=== PATIENT | male | born 1975 | race Caucasian/White ===

== ENCOUNTER 2017-07-13 21:48 | Emergency (ER) | payer MEDICAID, SELFPAY ==
[2017-07-13 21:49] VITALS: BP 123/73; PULSE 83; RESP 16; TEMP 36.8; O2SAT 92; BMI 20.7
--- NOTE | 2017-07-13 22:12 | ED.VISSUMM ---
- ER Visit Summary Date of Service: 07/13/17 Chief Complaint: [] Pain in the left calf History of Present Illness: The patient is a 41 M developed pain in his left calf 7 days ago. He noticed some redness along a superficial vein on the proximal medial calf. It went away. He felt a small nodule there. That went away. He has had a remote DVT 2 years ago. He wanted to make sure that we did not think he had a DVT. No significant pain currently. He is also complaining of some numbness in his right lateral thigh for greater than 10 days. He has a history of lumbar radiculopathies. No previous surgeries. He has had epidural injections. He is unsure if that is from his back. No home treatment. Physical Examination: Vital signs reviewed General: Well-nourished well-developed Head: Normocephalic atraumatic Eyes: Pupils equal round and reactive to light extraocular movements intact ENT: TMs clear no hemotympanum no trauma Neck: Nontender full range of motion Cardiovascular: Regular rate rhythm no murmurs normal S1-S2 Respiratory: No distress clear to auscultation bilaterally chest nontender Abdomen: Soft nontender nondistended normal bowel sounds no masses Back: Nontender no CVA tenderness Extremities: Nontender active range of motion ?4 extremities no trauma. Left lateral calf is normal. There is no swelling. There is no nodule of the vein. There is no redness warmth or discoloration. Normal range of motion. Right lateral thigh has mild decreased sensation to light touch. No swelling. No deformity. Skin: Normal color no trauma Neuro alert oriented cranial nerves II through XII intact normal strength sensation reflexes Test Results: [] Emergency Department Course and Treatment: [] At this time I feel the patient does not have a DVT in his left calf. 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 He really came in for reassurance. I do not feel he needs this ultrasound at this time. There is no swelling or appreciable abnormality. His right lateral thigh is likely from a radiculopathy from his lumbar spine. He will use anti-inflammatories and follow-up as an outpatient. Treatment Plan: [] Disposition: [] Impression: [] Left lateral calf pain resolved suspected thrombophlebitis resolved Right lateral thigh procedure was suspected lumbar radiculopathy This note was generated with [employer] dictation software. It may contain incorrect words, spelling, and punctuation that were not noted in review of the chart prior to signing ED Disposition - Plan for ED Patient: Chief Complaint: Lower Extremity Injury Referrals: Fotrunato Perdomo MD [Primary Care Provider] -
--- NOTE | 2017-07-13 22:16 | ED.DCSUM_ITS ---
- ER Visit Summary Date of Service: 07/13/17 Chief Complaint: [] Pain in the left calf History of Present Illness: The patient is a 41 M developed pain in his left calf 7 days ago. He noticed some redness along a superficial vein on the proximal medial calf. It went away. He felt a small nodule there. That went away. He has had a remote DVT 2 years ago. He wanted to make sure that we did not think he had a DVT. No significant pain currently. He is also complaining of some numbness in his right lateral thigh for greater than 10 days. He has a history of lumbar radiculopathies. No previous surgeries. He has had epidural injections. He is unsure if that is from his back. No home treatment. Physical Examination: Vital signs reviewed General: Well-nourished well-developed Head: Normocephalic atraumatic Eyes: Pupils equal round and reactive to light extraocular movements intact ENT: TMs clear no hemotympanum no trauma Neck: Nontender full range of motion Cardiovascular: Regular rate rhythm no murmurs normal S1-S2 Respiratory: No distress clear to auscultation bilaterally chest nontender Abdomen: Soft nontender nondistended normal bowel sounds no masses Back: Nontender no CVA tenderness Extremities: Nontender active range of motion ?4 extremities no trauma. Left lateral calf is normal. There is no swelling. There is no nodule of the vein. There is no redness warmth or discoloration. Normal range of motion. Right lateral thigh has mild decreased sensation to light touch. No swelling. No deformity. Skin: Normal color no trauma Neuro alert oriented cranial nerves II through XII intact normal strength sensation reflexes Test Results: [] Emergency Department Course and Treatment: [] At this time I feel the patient does not have a DVT in his left calf. 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 He really came in for reassurance. I do not feel he needs this ultrasound at this time. There is no swelling or appreciable abnormality. His right lateral thigh is likely from a radiculopathy from his lumbar spine. He will use anti- inflammatories and follow-up as an outpatient. Treatment Plan: [] Disposition: [] Impression: [] Left lateral calf pain resolved suspected thrombophlebitis resolved Right lateral thigh procedure was suspected lumbar radiculopathy This note was generated with [employer] dictation software. It may contain incorrect words, spelling, and punctuation that were not noted in review of the chart prior to signing ED Disposition - Plan for ED Patient: Chief Complaint: Lower Extremity Injury Referrals: Fortunato Perdomo MD [Primary Care Provider] -
--- NOTE | 2017-07-13 22:16 | ED.DEP ---
ED Disposition - Plan for ED Patient: Disposition: Home or Assisted Living Chief Complaint: Lower Extremity Injury Instructions: ED Paraesthesias Referrals: Fortunato Perdomo MD [Primary Care Provider] -
[2017-07-13 22:28] VITALS: RESP 18
--- NOTE | 2017-07-13 22:30 | NURSING ---
PATIENT DID NOT RECEIVE HIS MOTRIN. THIS NURSE WAS NOT ABLE TO GET THE COMPUTER TO WORK IN THE ROOM AND I DID NOT SEE THE MEDICATION WAS ORDERED. PT LEFT THE ROOM SO QUICKLY I WAS UNABLE TO CATCH HIM. DR. VALENZUELA WAS MADE AWARE AND WAS OK THAT HE DID NOT GET THE MOTRIN.
== END 2017-07-13 22:32 | disposition home or self-care (01) ==
PROVIDERS: Emergency Provider Emergency Medicine; Family Provider Family Medicine; PCP Family Medicine
DX: M79.662 Pain in left lower leg (principal); R20.0 Anesthesia of skin; Z86.718 Personal history of other venous thrombosis and embolism
CPT/HCPCS: 99282

== ENCOUNTER 2017-07-24 11:29 | Emergency (ER) | payer MEDICAID, SELFPAY ==
[2017-07-24 11:29] VITALS: BP 113/85; PULSE 115; RESP 22; TEMP 36.8; O2SAT 99; BMI 21.2
--- NOTE | 2017-07-24 11:55 | ED.DCSUM_ITS ---
- ER Visit Summary Date of Service: 07/24/17 Chief Complaint: Leg redness History of Present Illness: The patient is a 41 M since to the emergency department with right leg redness. The patient does have a history of heroin use. He states he injected in his leg about a week ago. Over the past 2 days, has noted some redness of the anterior leg. He denies any fevers or chills. He denies any history of immunosuppression. The patient does have history of prior pulmonary embolus, but is not currently on anticoagulants. He states the redness has gradually worsened over the past day. He denies any significant pain at the site. Physical Examination: Vital signs reviewed General: Well-nourished, well-developed Head: Normocephalic, atraumatic Eyes: Pupils equal and reactive, extraocular muscles intact Neck, supple, no lymphadenopathy Heart: Regular rate and rhythm Respiratory: No distress, clear bilaterally Abdomen: Soft, nontender, nondistended, no peritoneal signs Back: Nontender Extremities: No erythema of the anterior right quinonez. Normal pulses. No crepitus. No tenderness to palpation. Skin: Normal color no rash Neuro: Alert and oriented, no focal or lateralizing deficits Test Results: [] Emergency Department Course and Treatment: The patient does have an anterior cellulitis. It is mild. He has no systemic symptoms. I will treat him with oral antibiotics. There is no tenderness or crepitus. He was counseled on concerning symptoms and reasons to return. The patient will be discharged home. Treatment Plan: [] Disposition: Discharge Impression: 1. Right lower extremity cellulitis This note was generated with [employer] dictation software. It may contain incorrect words, spelling, and punctuation that were not noted in review of the chart prior to signing ED Disposition - Plan for ED Patient: Chief Complaint: Cellulitis Prescriptions: Cephalexin [Keflex] 500 mg PO Q6 #40 capsule Smz/Tmp Ds [Bactrim Ds] 2 tablet PO BID #28 tablet Referrals: Fortunato Perdomo MD [Primary Care Provider] -
[2017-07-24] MEDS: Smz/Tmp Ds Tablet 1 TABLET PO (12:06)
[2017-07-24] MEDS: Cephalexin 250 MG Capsule 500 MG PO (12:06)
== END 2017-07-24 12:17 | disposition home or self-care (01) ==
LOC: ED 12:14
PROVIDERS: Emergency Provider Emergency Medicine; Family Provider Family Medicine; PCP Family Medicine
DX: L03.115 Cellulitis of right lower limb (principal); Z72.0 Tobacco use
CPT/HCPCS: 99283

== ENCOUNTER 2018-05-05 17:02 | Emergency (ER) | payer MEDICAID, SELFPAY ==
[2018-05-05 17:02] VITALS: BMI 20.7
[2018-05-05 17:03] VITALS: BP 121/84; PULSE 98; RESP 16; TEMP 37.1; O2SAT 98; BMI 20.1
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
[2018-05-05] MEDS: Naproxen 500 MG Tablet PO (17:16)
[2018-05-05] MEDS: HYDROcodone Bitartrate/Apap 5/325 Tablet PO (17:16)
--- NOTE | 2018-05-05 18:03 | ED.DEP ---
ED Disposition - Plan for ED Patient: Disposition: Home or Assisted Living Chief Complaint: Chest Other Instructions: ED Fx Rib Prescriptions: Oxycodone [Oxyir] 5 mg PO Q6H PRN PRN 4 Days #20 tablet PRN Reason: Pain Naproxen [Naprosyn] 500 mg PO BID PRN #20 tablet Referrals: Fortunato Perdomo MD [Primary Care Provider] - 1-2 Weeks
[2018-05-05 18:16] VITALS: PULSE 72; RESP 14; O2SAT 98
== END 2018-05-05 18:17 | disposition home or self-care (01) ==
PROVIDERS: Emergency Provider Emergency Medicine; Family Provider Family Medicine; PCP Family Medicine
DX: S22.32XA Fracture of one rib, left side, initial encounter for closed fracture (principal); W50.0XXA Accidental hit or strike by another person, initial encounter; Y93.89 Activity, other specified; Z86.711 Personal history of pulmonary embolism; Z72.0 Tobacco use
CPT/HCPCS: 71101; 99283

== ENCOUNTER 2018-07-26 22:49 | Observation (INO) | payer MEDICAID, SELFPAY ==
[2018-07-26 22:50] VITALS: BP 89/63; PULSE 69; RESP 14; TEMP 36.6; O2SAT 96; BMI 21.1
--- NOTE | 2018-07-26 23:15 | EKG12_ITS ---
Test Reason : BACK PAIN Blood Pressure : / mmHG Vent. Rate : 074 BPM Atrial Rate : 074 BPM P-R Int : 124 ms QRS Dur : 100 ms QT Int : 334 ms P-R-T Axes : 076 092 076 degrees QTc Int : 370 ms Normal sinus rhythm with sinus arrhythmia Rightward axis Borderline ECG Confirmed by RUTH ANN VENEGAS, PADMA ([id number]), film editor DORY BRAVO ([id number]) on 08/01/2018 11:26:41 AM Referred By: NAMRATA Confirmed By:PADMA VALLECILLO MD
[2018-07-26] MEDS: Ketorolac 30 MG/ML Syringe IV (23:30)
[2018-07-26 23:43] LABS: Absolute Lymphocyte Count 2.19 X10^3/ul (0.83-4.51); Basophil# 0.07 X10^3/uL; Basophil% 0.7 % (0-1); Eosinophil# 0.11 X10^3/uL; Eosinophils% 1.2 % (0-5); Hematocrit 43.4 % (40-54); Hemoglobin 14.7 g/dl (13.0-16.5); Lymphocyte # 2.19 X10^3/ul (4.0); Lymphocyte % 23.1 % (19-41); Mean Corp Hgb Conc 33.9 g/gl (32-36); Mean Corpuscular Volume 91.6 fL (80-94); Mean Platelet Vol. 9.5 fl (6.2-12.0); Monocyte# 1.09 X10^3/uL; Monocyte% 11.5 % (0-10); Neutrophil # 5.99 X10^3/uL (2.7-7.7); Neutrophil % 63.1 % (47-70); Platelet Count 307 K/mm3 (150-450); RBC Distribution Width CV 14.7 % (11.6-14.6); RBC Distribution Width SD 48.4 fl (35.1-43.9); Red Blood Count 4.74 M/mm3 (4.6-6.2); White Blood Count 9.5 K/mm3 (4.4-11.0)
[2018-07-26 23:50] LABS: POSITIVE COUNT NO; POSITIVE DIFFERENTIAL NO; POSITIVE MORPHOLOGY NO
[2018-07-27 00:13] LABS: AST(SGOT) 1045 U/L (15-37); Alanine Aminotransfer ALT/SGPT 1979 U/L (16-61); Albumin, Serum 3.7 g/dL (3.2-5.0); Alkaline Phosphatase 345 U/L (45-117); Anion Gap 8 (5-15); BUN 13 mg/dL (7-18); BUN/Creat Ratio 10.9 RATIO (10-20); Bilirubin, Direct 2.53 mg/dL (0.00-0.30); Calcium,Total 8.4 mg/dL (8.5-10.1); Chloride 106 mmol/L (98-107); Creatinine, Serum 1.19 mg/dL (0.70-1.30); EST Glomerular Filtration Rate 71 mL/min (>60); Est Glom Filt Rate - Afr Amer 86 mL/min (>60); Estimated Creatinine Clearance 91.05 ml/min; Globulin 4.2 g/dL (2.2-4.2); Glucose 130 mg/dL (74-106); Potassium 4.6 mmol/L (3.5-5.1); Protein, Total 7.9 g/dL (6.4-8.2); Sodium Level 138 mmol/L (136-145)
--- NOTE | 2018-07-27 00:22 | CT_ITS ---
STUDY: CT ABDOMEN AND PELVIS WITH CONTRAST REASON FOR EXAM: Male, 42 years old. Flank pain RADIATION DOSAGE (If Supplied By Facility): CTDIvol = ( 10.19 ) mGy, DLP = ( 560.85 ) mGycm TECHNIQUE: Transaxial images were obtained from the dome of the diaphragm to the symphysis pubis without oral contrast. Isovue 300 100ML IV was administered. Sagittal and coronal images were reconstructed. Individualized dose optimization techniques were used for this CT. COMPARISON: None. FINDINGS: The visualized lung bases are unremarkable. The visualized portions of the heart are within normal limits. Few hypoattenuation lesions are seen in the liver largest measures 5 mm most likely represent cysts. Normal gallbladder and extrahepatic biliary system. Normal spleen. Normal pancreas. Normal bilateral adrenal glands. Normal right kidney. Normal left kidney. Normal visualized stomach. Normal small intestine. Normal colon. There is non-visualization of the appendix. Normal abdominal aorta. Normal inferior vena cava. Normal retroperitoneum. Normal urinary bladder. Normal abdominal wall. Normal osseous structures. CT/Abdomen/Pelvis W IV Cont ONLY IMPRESSION: No acute abnormality of the abdomen and pelvis. Electronically Signed: Medardo Beth MD at 1:49 EST Tel , Service support ,
[2018-07-27 00:59] LABS: Lipase 224 U/L (73-393)
[2018-07-27 01:12] LABS: Amphetamine Urine VISTA POSITIVE (<1000 ng/mL); Barbiturate Urine VISTA NEGATIVE (< 200 ng/mL); Benzodiazepine Urine VISTA NEGATIVE (< 200 ng/mL); Cocaine Urine VISTA NEGATIVE (< 300 ng/mL); Ecstacy Urine VISTA NEGATIVE (< 500 ng/mL); Methadone Urine VISTA NEGATIVE (< 300 ng/mL); PCP Urine VISTA NEGATIVE (< 25 ng/mL); THC Urine VISTA POSITIVE (< 50 ng/mL); Vista UDS pH Range 5
[2018-07-27 03:03] LABS: Acetaminophen (Tylenol) Level < 2.0 ug/mL (10.0-30.0)
[2018-07-27 03:19] VITALS: BP 93/52; PULSE 60; RESP 18; O2SAT 99
[2018-07-27] MEDS: 0.9% Normal Saline 1,000 ML 999 ML IV (03:24)
--- NOTE | 2018-07-27 03:39 | HP.PCM_ITS ---
History of Present Illness Date of Admission: 07/27/18 Chief Complaint: Intractable back pain. The patient is a 42 y/o M w/ PMHx: History prior DVT and PE w/ negative hypercoagulable workup, history of IVDA w/ most recent usage ~ 2 weeks prior, Hepatitis C previously following w/ Dr. Stone with no treatment or follow-up in several years, Tobacco use who presents to the [facility] ED on 07/27/18 with history of recently worsening intractable lumbar back pain, found per Girlfriend, decreased responsiveness on the floor with EMS call with improved responsiveness upon shaking, noted back hurting, possible overdose, unclear agent, denies any recent IVDA. Patient had as noted been previously following with Dr. stone however is not sooner since she left local practice. Work-up in the ED included T 97.9, heart rate 69, BP 93/52, respiratory rate 18, 99% on room air, CBC with WBC 9.5, hemoglobin 14.7, platelet 307 without left shift, CMP with glucose 130, total bilirubin 3.40, direct bilirubin 2.53, AST/ALT 1045/1979, Alk phos 345, NH 42, Trop < 0.015, lipase 224, UDS w/ positive amphetamine and cannabinoid, CT A/P w/ few hypoattenuation lesions in the liver with the largest measuring 5 mm suspicious for cyst with normal gallbladder and extrahepatic biliary system. In the ED patient administered Toradol, normal saline. Past Medical History Past Medical History (Chronic Problems): Chronic Problems History of hepatitis C (Chronic) Allergies erythromycin base [Erythromycin Base] Allergy (Verified 07/26/18 22:56) Hives Penicillins Allergy (Verified 07/26/18 22:56) Hives Home Medications: Ambulatory Orders Medication Instructions Recorded Naproxen [Naprosyn] 500 mg PO BID PRN #20 tablet 05/05/18 Surgical History: - - Left knee arthroscopic surgery, right foot cyst removal. Psychiatric History: No pertinent psych hx Lives: Spouse/ Significant Other Smoking Status: Current every day smoker - 1 ppd cigarette tobacco usage. Tobacco Use: Cigarettes Alcohol: Occasional Drugs: Marijuana, - - IVDA ongoing last ~ 2 weeks prior. - *Family History Maternal History Items: Unknown - Patient maternal and paternal family history unknown secondary to being adopted. Paternal History Items: Unknown - Patient maternal and paternal family history unknown secondary to being adopted. Review of Systems Constitutional: Reports: Malaise, Weakness, Fatigue. Denies: Chills, Fever, Weight Change HEENT: Denies: Head Aches, Sinus Congestion, Sinus Drainage Cardiovascular: Denies: Chest Pain, Palpitations Respiratory: Denies: Cough, Shortness of breath at rest, Sputum production Gastrointestinal: Reports: Nausea, - - Indigestion.. Denies: Abdominal Pain, Vomiting Genitourinary: Denies: Dysuria Musculoskeletal: Reports: Back Pain, Joint Pain. Denies: Joint Tenderness Skin: Denies: Rash, Wounds Neurological: Denies: Numbness, Tingling, Focal weakness Psychiatric: Denies: Anxiety, Depression, Homicidal Ideations, Suicidal Ideations Hematologic/ Lymphatic: Denies: Easy Bruising, Easy Bleeding VTE Information - Inpt Only VTE Present on Admission: No VTE Mechan Device Prophylaxis: SCD's VTE Pharm Prophylaxis ordered?: No Reason prophylaxis not ordered:: Medical Contraindication - Awaiting coags given notably elevated LFTs prior to initiation. Subjective: Seated upright in ED bed, fatigued appearance, no acute distress, notes still ongoing lumbar discomfort. Objective: Physical Examination: General: awake, alert, oriented x 3 and cooperative, seated upright in the ED bed in no apparent distress, ongoing lumbar discomfort. Skin: normal color, turgor, no icterus, cyanosis. HEENT: AT/NC, EOMI, PERRLA, only dry MM, no carotid bruits or JVD noted. Lungs: CTA bilaterally, moderate effort, mild decrease BL bases, no rales, ronchi or wheezing. Heart: Regular rate and rhythm; no gallop, rub audible. Abdomen: soft, NTTP, ND, normal BS, + HM, mild. Extremities: no cyanosis, clubbing, or edema. Neurological: patient awake, alert, oriented x 3; cognitive function intact; pupils equally reactive to light and accomodation; cranial nerves II-XII grossly normal, moving all 4 extremities although comfort with straight leg leg raise bilaterally, bilateral paraspinous lumbar discomfort with palpation, right greater than left, no focal deficits, strength moderately globally decreased secondary to acute presentation. Psychiatric: affect appears tearful with discussions of laboratory values and concerns for untreated hepatitis C. - Physical Exam Vital Signs Temp Pulse Resp BP Pulse Ox 97.9 F 60 18 93/52 L 99 07/26/18 22:50 07/27/18 03:19 07/27/18 03:19 07/27/18 03:19 07/27/18 03:19 Oxygen Delivery Method Room Air Weight: 173 lb 11.588 oz Body Mass Index (BMI) 21.1 Laboratory Tests Past 24 Hrs 07/26/18 07/26/18 07/26/18 23:35 23:35 23:35 WBC 9.5 RBC 4.74 Hgb 14.7 Hct 43.4 MCV 91.6 MCH 31.0 MCHC 33.9 RDW 14.7 H RDW Differential 48.4 H Plt Count 307 MPV 9.5 Immature Gran % (Auto) 0.400 Neut % (Auto) 63.1 Lymph % (Auto) 23.1 [place]ata[place]oula % (Auto) 11.5 H Eos % (Auto) 1.2 Baso % (Auto) 0.7 Absolute Neuts (auto) 6.0 Absolute Lymphs (auto) 2.19 Total Counted Not Reportable Sodium 138 Potassium 4.6 Chloride 106 Carbon Dioxide 24.0 Anion Gap 8 BUN 13 Creatinine 1.19 Estim Creat Clear Calc 91.05 Est GFR (MDRD) Af Amer 86 Est GFR (MDRD) Non-Af 71 BUN/Creatinine Ratio 10.9 Glucose 130 H Calcium 8.4 L Total Bilirubin 3.40 H Direct Bilirubin 2.53 H AST 1045 H ALT 1979 H Alkaline Phosphatase 345 H Ammonia Troponin I < 0.015 Total Protein 7.9 Albumin 3.7 Globulin 4.2 Lipase Urine Opiates Screen Urine Methadone Screen Acetaminophen Ur Barbiturates Screen Ur Phencyclidine Scrn Ur Amphetamines Screen U Methamphetamin-MDMA U Benzodiazepines Scrn Urine Cocaine Screen U Cannabinoids Screen Ur Drug Screen Comment Ethyl Alcohol 7.0 Hepatitis A IgM Ab Hep Bs Antigen Hep B Core IgM Ab Hepatitis C Ab (EIA) 07/26/18 07/26/18 07/26/18 23:35 23:35 23:35 WBC RBC Hgb Hct MCV MCH MCHC RDW RDW Differential Plt Count MPV Immature Gran % (Auto) Neut % (Auto) Lymph % (Auto) Cata[place]oula % (Auto) Eos % (Auto) Baso % (Auto) Absolute Neuts (auto) Absolute Lymphs (auto) Total Counted Sodium Potassium Chloride Carbon Dioxide Anion Gap BUN Creatinine Estim Creat Clear Calc Est GFR (MDRD) Af Amer Est GFR (MDRD) Non-Af BUN/Creatinine Ratio Glucose Calcium Total Bilirubin Direct Bilirubin AST ALT Alkaline Phosphatase Ammonia Troponin I Total Protein Albumin Globulin Lipase 224 Urine Opiates Screen Urine Methadone Screen Acetaminophen < 2.0 L Ur Barbiturates Screen Ur Phencyclidine Scrn Ur Amphetamines Screen U Methamphetamin-MDMA U Benzodiazepines Scrn Urine Cocaine Screen U Cannabinoids Screen Ur Drug Screen Comment Ethyl Alcohol Hepatitis A IgM Ab Pending Hep Bs Antigen Pending Hep B Core IgM Ab Pending Hepatitis C Ab (EIA) Pending 07/27/18 07/27/18 00:35 00:40 WBC RBC Hgb Hct MCV MCH MCHC RDW RDW Differential Plt Count MPV Immature Gran % (Auto) Neut % (Auto) Lymph % (Auto) [place]oula % (Auto) Eos % (Auto) Baso % (Auto) Absolute Neuts (auto) Absolute Lymphs (auto) Total Counted Sodium Potassium Chloride Carbon Dioxide Anion Gap BUN Creatinine Estim Creat Clear Calc Est GFR (MDRD) Af Amer Est GFR (MDRD) Non-Af BUN/Creatinine Ratio Glucose Calcium Total Bilirubin Direct Bilirubin AST ALT Alkaline Phosphatase Ammonia 42.0 H Troponin I Total Protein Albumin Globulin Lipase Urine Opiates Screen NEGATIVE Urine Methadone Screen NEGATIVE Acetaminophen Ur Barbiturates Screen NEGATIVE Ur Phencyclidine Scrn NEGATIVE Ur Amphetamines Screen POSITIVE H U Methamphetamin-MDMA NEGATIVE U Benzodiazepines Scrn NEGATIVE Urine Cocaine Screen NEGATIVE U Cannabinoids Screen POSITIVE H Ur Drug Screen Comment Ethyl Alcohol Hepatitis A IgM Ab Hep Bs Antigen Hep B Core IgM Ab Hepatitis C Ab (EIA) Assessment/Plan All Active Problems Smoking (Acute) Pulmonary embolism and infarction (Acute) The patient is a 42 y/o M w/ PMHx: History prior DVT and PE w/ negative hypercoagulable workup, history of IVDA w/ most recent usage ~ 2 weeks prior, Hepatitis C previously following w/ DrBrandon Signs with no treatment or follow-up in several years, Tobacco use who presents to the [facility] ED on 07/27/18 with history of recently worsening intractable lumbar back pain, found per Girlfriend, decreased responsiveness on the floor with EMS call with improved responsiveness upon shaking, noted back hurting, possible overdose, unclear agent, denies any recent IVDA over the last 2 weeks. (1) Acute on Chronic Intractable Lumbar Back Pain: Will obtain plain film of the lumbar spine. Will admit to [facility], maintain on fall precautions, frequent positioning, maintain on toradol scheduled regimen, given low BP and notably elevated LFTs defer aggressive narcotic regimen, flexeril PRN, anti-emetics, bowel regimen, burst steroid regimen. Will consult PT and OT for evaluation. If not improving will need to consider MRI lumbar spine. (2) Polysubstance Abuse, IVDA Hx, History of Hepatitis C, Chronic w/ Elevated LFTs, Alk Phos, Bilirubin: ED CMP w/ total bilirubin 3.40, direct bilirubin 2.53, AST/ALT 1045/1979, Alk phos 345, NH 42, Trop < 0.015, lipase 224, UDS w/ positive amphetamine and cannabinoid, CT A/P w/ few hypoattenuation lesions in the liver with the largest measuring 5 mm suspicious for cyst with normal gallbladder and extrahepatic biliary system. Patient currently not candidate for hep C treatment currently as needs to be clean, sober x 6 months, documented attendance NA or AA meetings, counseling and ongoing negative drug screens. HIV, hepatitis panel with HCV viral load pending. Given notable elevations will request ID evaluation inpatient to improve outpatient follow-up. Coags ordered. (3) Tobacco Abuse: Encouraged cessation, inpatient consultation per RT, NR if desired. (4) History of DVT, PE: Prior history of DVT and pulmonary embolism on separate occasions, from discussion with patient's workup ensued with suspected negative hypercoagulable workup at that time. (5) GERD: PPI. (6) DVT Prophylaxis: Low risk, OMAR, await coags prior to initiation given notably elevated LFTs. Code Visit OBSV E&M: 02350 Initial observation care L3
[2018-07-27 04:51] VITALS: BMI 20.6
[2018-07-27 05:06] VITALS: BP 106/72; PULSE 59; RESP 16; TEMP 36.9; O2SAT 98
[2018-07-27] MEDS: Pantoprazole Sodium 20 MG Tablet PO ×2 (05:41→21:11)
[2018-07-27] MEDS: predniSONE 20 MG Tablet 40 MG PO (05:41)
[2018-07-27] MEDS: 0.9% Normal Saline 1,000 ML 125 ML IV ×3 (05:41→20:54)
[2018-07-27] MEDS: 0.9% NaCl Peripheral Flush Adult/Peds IV ×2 (05:42→23:25)
[2018-07-27] MEDS: Ketorolac 30 MG/ML Syringe IV ×3 (05:42→21:07)
[2018-07-27 05:45] LABS: International Normalized Ratio 1.1; Prothrombin Time (Protime)PT. 13.7 SECONDS (11.7-14.9)
[2018-07-27 05:46] LABS: Partial Thromboplast Time 35.1 Seconds (24.1-36.2)
[2018-07-27 06:07] LABS: Magnesium 2.3 mg/dL (1.6-2.6)
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
[2018-07-27 09:00] LABS: HIV - WCH Non-Reactive (Nonreactive)
[2018-07-27 09:56] VITALS: BP 90/60; PULSE 60; RESP 16; TEMP 36.6; O2SAT 96
[2018-07-27 10:47] LABS: AST(SGOT) 1057 U/L (15-37); Alanine Aminotransfer ALT/SGPT 1886 U/L (16-61); Albumin, Serum 3.4 g/dL (3.2-5.0); Alkaline Phosphatase 304 U/L (45-117); Bilirubin, Direct 2.25 mg/dL (0.00-0.30); Globulin 3.4 g/dL (2.2-4.2); Protein, Total 6.8 g/dL (6.4-8.2)
--- NOTE | 2018-07-27 11:07 | CON.PCM_ITS ---
Problem List (1) Transaminitis Status: Acute (2) IVDU (intravenous drug user) Status: Acute Reason for Consult: hep C Consulted by: Dr. Cho History of Present Illness: The patient is a 42 year old M with h/o hep C and active IVDU who presented last night to ED with sudden onset of back pain, several days of nausea, and some unresponsiveness. Said last time injected was 2-3 weeks ago. Does not share needles. Hep C dx 2014, no h/o treatment. Denies any jaundice. Hep B studies neg at that time in 2014. Taken to ED, found to have large amount of transaminitis. Hep panel sent, given iv fluids. Denies recent tylenol use, reports had 1.5 drinks with dinner, but does not regularly drink etoh. No recent illnesses, no sick contacts, no fever/night sweats, no cold sore or h/o herpes. Full ROS performed and neg except as noted above. He was adopted and does not know family history. - Medical History Past Medical History (Chronic Problems): Chronic Problems History of hepatitis C (Chronic) Allergies/Adverse Reactions: Allergies erythromycin base [Erythromycin Base] Allergy (Verified 07/26/18 22:56) Hives Penicillins Allergy (Verified 07/26/18 22:56) Hives Home Medications: Ambulatory Orders Medication Instructions Recorded Naproxen [Naprosyn] 500 mg PO BID PRN #20 tablet 05/05/18 - Social History SMOKING STATUS:: Current every day smoker Alcohol Use: occasionally Drug Use: heroin Vital Signs Temp Pulse Resp BP Pulse Ox 97.9 F 60 16 90/60 96 07/27/18 09:56 07/27/18 09:56 07/27/18 09:56 07/27/18 09:56 07/27/18 09:56 Oxygen Delivery Method Room Air Weight: 76.839 kg Body Mass Index (BMI) 20.6 Laboratory Tests Past 24 Hrs 07/26/18 07/26/18 07/26/18 23:35 23:35 23:35 WBC 9.5 RBC 4.74 Hgb 14.7 Hct 43.4 MCV 91.6 MCH 31.0 MCHC 33.9 RDW 14.7 H RDW Differential 48.4 H Plt Count 307 MPV 9.5 Immature Gran % (Auto) 0.400 Neut % (Auto) 63.1 Lymph % (Auto) 23.1 [place] % (Auto) 11.5 H Eos % (Auto) 1.2 Baso % (Auto) 0.7 Absolute Neuts (auto) 6.0 Absolute Lymphs (auto) 2.19 Total Counted Not Reportable PT INR APTT Sodium 138 Potassium 4.6 Chloride 106 Carbon Dioxide 24.0 Anion Gap 8 BUN 13 Creatinine 1.19 Estim Creat Clear Calc 91.05 Est GFR (MDRD) Af Amer 86 Est GFR (MDRD) Non-Af 71 BUN/Creatinine Ratio 10.9 Glucose 130 H Calcium 8.4 L Magnesium Total Bilirubin 3.40 H Direct Bilirubin 2.53 H AST 1045 H ALT 1979 H Alkaline Phosphatase 345 H Ammonia Troponin I < 0.015 Total Protein 7.9 Albumin 3.7 Globulin 4.2 Lipase Urine Opiates Screen Urine Methadone Screen Acetaminophen Ur Barbiturates Screen Ur Phencyclidine Scrn Ur Amphetamines Screen U Methamphetamin-MDMA U Benzodiazepines Scrn Urine Cocaine Screen U Cannabinoids Screen Ur Drug Screen Comment Ethyl Alcohol 7.0 Hepatitis A IgM Ab Hep Bs Antigen Hep B Core IgM Ab Hepatitis C Ab (EIA) HCV RNA Quant (PCR) HIV 1&2 Antibody 07/26/18 07/26/18 07/26/18 23:35 23:35 23:35 WBC RBC Hgb Hct MCV MCH MCHC RDW RDW Differential Plt Count MPV Immature Gran % (Auto) Neut % (Auto) Lymph % (Auto) [place] % (Auto) Eos % (Auto) Baso % (Auto) Absolute Neuts (auto) Absolute Lymphs (auto) Total Counted PT INR APTT Sodium Potassium Chloride Carbon Dioxide Anion Gap BUN Creatinine Estim Creat Clear Calc Est GFR (MDRD) Af Amer Est GFR (MDRD) Non-Af BUN/Creatinine Ratio Glucose Calcium Magnesium Total Bilirubin Direct Bilirubin AST ALT Alkaline Phosphatase Ammonia Troponin I Total Protein Albumin Globulin Lipase 224 Urine Opiates Screen Urine Methadone Screen Acetaminophen < 2.0 L Ur Barbiturates Screen Ur Phencyclidine Scrn Ur Amphetamines Screen U Methamphetamin-MDMA U Benzodiazepines Scrn Urine Cocaine Screen U Cannabinoids Screen Ur Drug Screen Comment Ethyl Alcohol Hepatitis A IgM Ab Pending Hep Bs Antigen Pending Hep B Core IgM Ab Pending Hepatitis C Ab (EIA) Pending HCV RNA Quant (PCR) HIV 1&2 Antibody 07/27/18 07/27/18 07/27/18 00:35 00:40 05:30 WBC RBC Hgb Hct MCV MCH MCHC RDW RDW Differential Plt Count MPV Immature Gran % (Auto) Neut % (Auto) Lymph % (Auto) [place] % (Auto) Eos % (Auto) Baso % (Auto) Absolute Neuts (auto) Absolute Lymphs (auto) Total Counted PT INR APTT Sodium Potassium Chloride Carbon Dioxide Anion Gap BUN Creatinine Estim Creat Clear Calc Est GFR (MDRD) Af Amer Est GFR (MDRD) Non-Af BUN/Creatinine Ratio Glucose Calcium Magnesium Total Bilirubin Direct Bilirubin AST ALT Alkaline Phosphatase Ammonia 42.0 H Troponin I Total Protein Albumin Globulin Lipase Urine Opiates Screen NEGATIVE Urine Methadone Screen NEGATIVE Acetaminophen Ur Barbiturates Screen NEGATIVE Ur Phencyclidine Scrn NEGATIVE Ur Amphetamines Screen POSITIVE H U Methamphetamin-MDMA NEGATIVE U Benzodiazepines Scrn NEGATIVE Urine Cocaine Screen NEGATIVE U Cannabinoids Screen POSITIVE H Ur Drug Screen Comment Ethyl Alcohol Hepatitis A IgM Ab Hep Bs Antigen Hep B Core IgM Ab Hepatitis C Ab (EIA) HCV RNA Quant (PCR) Pending HIV 1&2 Antibody 07/27/18 07/27/18 07/27/18 05:30 05:30 05:30 WBC RBC Hgb Hct MCV MCH MCHC RDW RDW Differential Plt Count MPV Immature Gran % (Auto) Neut % (Auto) Lymph % (Auto) [place] % (Auto) Eos % (Auto) Baso % (Auto) Absolute Neuts (auto) Absolute Lymphs (auto) Total Counted PT 13.7 INR 1.1 APTT 35.1 Sodium Potassium Chloride Carbon Dioxide Anion Gap BUN Creatinine Estim Creat Clear Calc Est GFR (MDRD) Af Amer Est GFR (MDRD) Non-Af BUN/Creatinine Ratio Glucose Calcium Magnesium 2.3 Total Bilirubin Direct Bilirubin AST ALT Alkaline Phosphatase Ammonia Troponin I Total Protein Albumin Globulin Lipase Urine Opiates Screen Urine Methadone Screen Acetaminophen Ur Barbiturates Screen Ur Phencyclidine Scrn Ur Amphetamines Screen U Methamphetamin-MDMA U Benzodiazepines Scrn Urine Cocaine Screen U Cannabinoids Screen Ur Drug Screen Comment Ethyl Alcohol Hepatitis A IgM Ab Hep Bs Antigen Hep B Core IgM Ab Hepatitis C Ab (EIA) HCV RNA Quant (PCR) HIV 1&2 Antibody Non-Reactive 07/27/18 05:30 WBC RBC Hgb Hct MCV MCH MCHC RDW RDW Differential Plt Count MPV Immature Gran % (Auto) Neut % (Auto) Lymph % (Auto) [place] % (Auto) Eos % (Auto) Baso % (Auto) Absolute Neuts (auto) Absolute Lymphs (auto) Total Counted PT INR APTT Sodium Potassium Chloride Carbon Dioxide Anion Gap BUN Creatinine Estim Creat Clear Calc Est GFR (MDRD) Af Amer Est GFR (MDRD) Non-Af BUN/Creatinine Ratio Glucose Calcium Magnesium Total Bilirubin 3.30 H Direct Bilirubin 2.25 H AST 1057 H ALT 1886 H Alkaline Phosphatase 304 H Ammonia Troponin I Total Protein 6.8 Albumin 3.4 Globulin 3.4 Lipase Urine Opiates Screen Urine Methadone Screen Acetaminophen Ur Barbiturates Screen Ur Phencyclidine Scrn Ur Amphetamines Screen U Methamphetamin-MDMA U Benzodiazepines Scrn Urine Cocaine Screen U Cannabinoids Screen Ur Drug Screen Comment Ethyl Alcohol Hepatitis A IgM Ab Hep Bs Antigen Hep B Core IgM Ab Hepatitis C Ab (EIA) HCV RNA Quant (PCR) HIV 1&2 Antibody - Other Studies Radiology: [] reviewed Other Studies: [] Route of nutrition/ use of supplements: [] Nutritional Intake: [] IV Site: [] Chappell Catheter: [] - Physical Exam General: Alert, Oriented x3, Cooperative, No apparent distress HEENT: PERRLA, EOMI Neck: Supple, No Nodes Lungs: Clear to auscultation, Normal air movement Cardiovascular: Regular rate, Regular Rhythm, No murmurs Abdomen: Soft, Non Tender, Non-Distended Extremities: No edema Skin: No rashes, - - healing scabs on extremities IV Site: Peripheral, without redness Musculoskeletal: No Tenderness to Palpation of Joints or Extremities Neurological: Cranial nerves II-XII grossly intact - Assessment/Plan Antibiotics: [] Assessment/Plan: [] abnormal LFTs - AST/ALT greater than 15 times upper limit of normal. Has h/o hep C, genotype 2, pcr 6 million in 2015, hep B neg at that time. No h/o hep C treatment. Does have active IV heroin and meth use, denies sharing needles. HIV neg here. No clear other exposures/risk factors for liver damage. No encephalopathy at this time. Will repeat LFT and INR to see progress; labs are relatively stable/improving, so I think he is ok to continue with current monitoring while viral studies are pending. If he worsens and starts to develop fulminant liver failure, will need to consider liver doppler, GI eval, autoimmune studies, and transfer to tertiary care center. Will follow, thank you, d/w Dr. Henry.
[2018-07-27 14:52] VITALS: BP 123/69; PULSE 51; RESP 16; TEMP 36.6; O2SAT 99
[2018-07-27 20:50] VITALS: BP 109/69; PULSE 54; RESP 18; TEMP 36.8; O2SAT 99
[2018-07-27] MEDS: Ondansetron 4 MG/2 ML Vial IV (20:58)
[2018-07-27] MEDS: tiZANidine HCl 2 MG Tablet 4 MG PO (23:25)
[2018-07-28 02:50] VITALS: BP 114/68; PULSE 59; RESP 16; TEMP 36.9; O2SAT 96
[2018-07-28] MEDS: Mag Hydrox/Al Hydrox/Simeth 30 ML UDC PO (03:32)
[2018-07-28 04:12] LABS: Hepatitis A IgM Antibody Negative (Negative); Hepatitis B Core AB IgM Positive (Negative)
[2018-07-28] MEDS: Ondansetron 4 MG/2 ML Vial IV (05:06)
[2018-07-28] MEDS: 0.9% NaCl Peripheral Flush Adult/Peds IV ×2 (05:06→16:16)
[2018-07-28] MEDS: Ketorolac 30 MG/ML Syringe IV ×2 (05:06→16:15)
--- NOTE | 2018-07-28 05:15 | NURSING ---
Called and left message for [facility] that patient had a consult per Dr Henry for IV drug use, specifically Heroine and amphetamines.
[2018-07-28] MEDS: tiZANidine HCl 2 MG Tablet 4 MG PO ×2 (06:34→16:15)
[2018-07-28 07:19] LABS: Absolute Lymphocyte Count 2.07 X10^3/ul (0.83-4.51); Absolute Neutrophil Count 7.8 X10^3/uL (2.0-7.7); Basophil# 0.03 X10^3/uL; Basophil% 0.3 % (0-1); Eosinophil# 0.07 X10^3/uL; Eosinophils% 0.6 % (0-5); Hematocrit 35.8 % (40-54); Hemoglobin 11.9 g/dl (13.0-16.5); Lymphocyte # 2.07 X10^3/ul (4.0); Lymphocyte % 18.4 % (19-41); Mean Corp Hgb Conc 33.2 g/gl (32-36); Mean Corpuscular Hgb 30.5 pg (27.0-32.0); Mean Corpuscular Volume 91.8 fL (80-94); Mean Platelet Vol. 10.1 fl (6.2-12.0); Monocyte# 1.27 X10^3/uL; Monocyte% 11.3 % (0-10); Neutrophil # 7.81 X10^3/uL (2.7-7.7); Neutrophil % 69.2 % (47-70); Platelet Count 244 K/mm3 (150-450); RBC Distribution Width CV 14.9 % (11.6-14.6); RBC Distribution Width SD 49.1 fl (35.1-43.9); White Blood Count 11.3 K/mm3 (4.4-11.0)
[2018-07-28 07:24] LABS: POSITIVE COUNT NO; POSITIVE DIFFERENTIAL NO; POSITIVE MORPHOLOGY NO
[2018-07-28 07:45] LABS: BUN 14 mg/dL (7-18); Estimated Creatinine Clearance 105.65 ml/min; Glucose 138 mg/dL (74-106)
[2018-07-28 07:46] LABS: ALB/GLOB Ratio 0.9 RATIO (0.9-2.4); AST(SGOT) 481 U/L (15-37); Alanine Aminotransfer ALT/SGPT 1283 U/L (16-61); Albumin, Serum 2.9 g/dL (3.2-5.0); Alkaline Phosphatase 246 U/L (45-117); Anion Gap 4 (5-15); BUN/Creat Ratio 14.1 RATIO (10-20); Chloride 109 mmol/L (98-107); EST Glomerular Filtration Rate 88 mL/min (>60); Est Glom Filt Rate - Afr Amer 106 mL/min (>60); Globulin 3.3 g/dL (2.2-4.2); Potassium 3.7 mmol/L (3.5-5.1); Protein, Total 6.2 g/dL (6.4-8.2); Sodium Level 140 mmol/L (136-145)
--- NOTE | 2018-07-28 08:16 | PN_ITS ---
Subjective: All events the past 24 hours of been reviewed. He is afebrile. Vital signs are stable. 96-99% on room air. Fair oral intake. All lab was personally reviewed. White blood cell count today is 11.3 with a normal differential. Hemoglobin is 11.9 and platelets are normal. Fasting blood sugars have been mildly elevated and the fasting today is 138. LFTs are improving and the total bilirubin is 2.9, down from 3.4 at admission. AST is 481, down from 1057 yesterday and the ALT is 1283, down from 1979 at admission. The alkaline phosphatase is 246, down from 345 at admission. Hepatitis panel is pending. He will meet with the [employer] compliance representative today to discuss treatment for opiate addiction. Objective: GENERAL: very drowsy today and difficult to arouse ORAL: moist mucosa, no mucosal lesions NECK: No JVD, supple, trachea midline, no carotid bruits LUNGS: CTA, symmetric chest expansion HEART: RRR, Normal S1 and S2, no rub, no gallop, no murmur ABDOMEN: soft, NT, ND, BS present, no guarding with palpation EXTREMITIES: no edema, no cyanosis, no calf tenderness, full range of motion on both lower extremities. Positive straight leg raising at approximately 60 degrees on the left and also positive Surinder's on the left. 5/5 strength in both lower extremities SKIN: No rashes, no breakdown, multiple tattoos NEUROLOGIC: no focal neurologic deficits PSYCH: appropriate, flat - Physical Exam Vital Signs Temp Pulse Resp BP Pulse Ox 98.4 F 59 L 16 114/68 96 07/28/18 02:50 07/28/18 02:50 07/28/18 02:50 07/28/18 02:50 07/28/18 02:50 Oxygen Delivery Method Room Air Weight: 169 lb 6.416 oz Body Mass Index (BMI) 20.6 Intake and Output for Last 24 Hours 07/26/18 07/27/18 07/28/18 23:59 23:59 23:59 Intake Total 2322 / 2322 1156 / 1156 Output Total 75 / 75 Balance 2322 / 2322 1081 / 1081 Laboratory Tests Past 24 Hrs 07/27/18 07/27/18 07/28/18 05:30 05:30 06:35 WBC 11.3 H RBC 3.90 L Hgb 11.9 L Hct 35.8 L MCV 91.8 MCH 30.5 MCHC 33.2 RDW 14.9 H RDW Differential 49.1 H Plt Count 244 MPV 10.1 Immature Gran % (Auto) 0.200 Neut % (Auto) 69.2 Lymph % (Auto) 18.4 L [place] % (Auto) 11.3 H Eos % (Auto) 0.6 Baso % (Auto) 0.3 Absolute Neuts (auto) 7.8 H Absolute Lymphs (auto) 2.07 Total Counted Not Reportable Sodium Potassium Chloride Carbon Dioxide Anion Gap BUN Creatinine Estim Creat Clear Calc Est GFR (MDRD) Af Amer Est GFR (MDRD) Non-Af BUN/Creatinine Ratio Glucose Calcium Total Bilirubin 3.30 H Direct Bilirubin 2.25 H AST 1057 H ALT 1886 H Alkaline Phosphatase 304 H Total Protein 6.8 Albumin 3.4 Globulin 3.4 Albumin/Globulin Ratio HIV 1&2 Antibody Non-Reactive 07/28/18 06:35 WBC RBC Hgb Hct MCV MCH MCHC RDW RDW Differential Plt Count MPV Immature Gran % (Auto) Neut % (Auto) Lymph % (Auto) [place] % (Auto) Eos % (Auto) Baso % (Auto) Absolute Neuts (auto) Absolute Lymphs (auto) Total Counted Sodium 140 Potassium 3.7 Chloride 109 H Carbon Dioxide 27.0 Anion Gap 4 L BUN 14 Creatinine 1.00 Estim Creat Clear Calc 105.65 Est GFR (MDRD) Af Amer 106 Est GFR (MDRD) Non-Af 88 BUN/Creatinine Ratio 14.1 Glucose 138 H Calcium 8.0 L Total Bilirubin 2.90 H Direct Bilirubin AST 481 H ALT 1283 H Alkaline Phosphatase 246 H Total Protein 6.2 L Albumin 2.9 L Globulin 3.3 Albumin/Globulin Ratio 0.9 HIV 1&2 Antibody Medical Necessity - Tobacco Use Smoking Status: Current every day smoker Tobacco Use: Cigarettes Assessment/Plan All Active Problems Amphetamine abuse (Acute) Decreased level of consciousness (Acute) Pulmonary embolism and infarction (Resolved) Impressions 1. Acute opiate withdrawal 2. Chronic back pain with radiation to the left lower extremity, not associated with fever or rigors. White blood cell count and differential are normal. 3. Hepatitis C 4. Markedly elevated transaminases with a mildly elevated bilirubin and alkaline phosphatase. PT/INR is within normal limits. 5. Mild hyperammonemia with no mental status changes 6. Intravenous amphetamine use 7. Current intravenous narcotic use 8. Cannabis use He told the [facility] [employer] rep tht he was not interested in rehab......he is not a daily user of Heroin or carfentanil and he does not feel he has a problem. He is worried that his PO will find out he is using and send him back to longterm. He does not see daily amphetamine use as a problem Probable DC in the AM Recheck a Urine drug screen - he is very lethargic today Code Visit Inpatient E&M: 07156 Subs Hosp L2
[2018-07-28 08:50] VITALS: BP 121/64; PULSE 60; RESP 16; TEMP 37.1; O2SAT 97
[2018-07-28] MEDS: predniSONE 20 MG Tablet 60 MG PO (09:38)
[2018-07-28 09:41] LABS: Hemoglobin A1c 5.3 % (4.2-6.3)
[2018-07-28] MEDS: Pantoprazole Sodium 20 MG Tablet PO (09:47)
--- NOTE | 2018-07-28 13:25 | PN.ID_ITS ---
Patient Problems: Active and Suspected Problems Transaminitis (Acute) IVDU (intravenous drug user) (Acute) Subjective: Some n/v, some R sided abd pain, no fever. - Physical Exam General: Alert, Cooperative, No apparent distress Lungs: Clear to auscultation, Normal air movement Cardiovascular: Regular rate, Regular Rhythm Abdomen: Soft, Non-Distended, Tender - mild Extremities: No edema Skin: No rashes Vital Signs Temp Pulse Resp BP Pulse Ox 98.7 F 60 16 121/64 H 97 07/28/18 08:50 07/28/18 08:50 07/28/18 08:50 07/28/18 08:50 07/28/18 08:50 Oxygen Delivery Method Room Air Weight: 76.839 kg Body Mass Index (BMI) 20.6 Intake and Output for Last 24 Hours 07/26/18 07/27/18 07/28/18 23:59 23:59 23:59 Intake Total 2322 / 2322 1156 / 1156 Output Total 75 / 75 Balance 2322 / 2322 1081 / 1081 Laboratory Tests Past 24 Hrs 07/28/18 07/28/18 07/28/18 06:35 06:35 06:35 WBC 11.3 H RBC 3.90 L Hgb 11.9 L Hct 35.8 L MCV 91.8 MCH 30.5 MCHC 33.2 RDW 14.9 H RDW Differential 49.1 H Plt Count 244 MPV 10.1 Immature Gran % (Auto) 0.200 Neut % (Auto) 69.2 Lymph % (Auto) 18.4 L [place] % (Auto) 11.3 H Eos % (Auto) 0.6 Baso % (Auto) 0.3 Absolute Neuts (auto) 7.8 H Absolute Lymphs (auto) 2.07 Total Counted Not Reportable Sodium 140 Potassium 3.7 Chloride 109 H Carbon Dioxide 27.0 Anion Gap 4 L BUN 14 Creatinine 1.00 Estim Creat Clear Calc 105.65 Est GFR (MDRD) Af Amer 106 Est GFR (MDRD) Non-Af 88 BUN/Creatinine Ratio 14.1 Glucose 138 H Hemoglobin A1c 5.3 Calcium 8.0 L Total Bilirubin 2.90 H AST 481 H ALT 1283 H Alkaline Phosphatase 246 H Total Protein 6.2 L Albumin 2.9 L Globulin 3.3 Albumin/Globulin Ratio 0.9 Medical Necessity - Tobacco Use Smoking Status: Current every day smoker Tobacco Use: Cigarettes Route of nutrition/ use of supplements: [] Nutritional Intake: [] IV Site: [] Chappell Catheter: [] - Assessment/Plan Antibiotics: [] Assessment/Plan: [] abnormal LFTs - AST/ALT greater than 15 times upper limit of normal. Has h/o hep C, genotype 2, pcr 6 million in 2014, hep B neg at that time. No h/o hep C treatment. Does have active IV heroin and meth use, denies sharing needles. HIV neg here. LFTs improving. Ok for ID follow up outpt for hep C treatment if he is able to remain off drugs. Will follow
--- NOTE | 2018-07-28 13:36 | NEWVISION ---
I met with this patient as a request of Dr. Henry. Patient stated that his drug of choice is meth and he used heroin the night before his admission and prior to that had not used since June 2018. Patient does not meet criteria based on self reporting and also does not express any interest in help. I offered outpatient resources, patient declined. Patient is working with [facility] as a result of probation. I let patient know to request or call my office if he changes his mind about further resources.
--- NOTE | 2018-07-28 14:58 | CASEMGMT ---
Social Work Note Per nursing note, pt has history of IV Drug Use (Heroin and amphetamines). Irina Lamb with [facility] met with pt. Refer to Irina Lamb's (IMMANUEL) note. Pt isn't appropriate for [facility] and denied wanting resources. Pt is to call [facility] office if he wants additional resources. Rosalie Montes LEAD POURER, [employer]LECTION DRIVER
[2018-07-28 16:07] VITALS: BP 102/63; PULSE 88; RESP 16; TEMP 37; O2SAT 99
--- NOTE | 2018-07-28 18:03 | PCM.DC ---
- Discharge Diagnoses Current Active Problems: Current Active and Chronic Problems Transaminitis (Acute) IVDU (intravenous drug user) (Acute) You will use the following diet at home:: No restrictions Your food should be the consistency of: Regular Your liquids should be the consistency of: Regular/Thin Discharge Activity: Return to Normal Activity, - - May not drive while under the influence of intravenous amphetamine or heroin Return to work on:: 07/31/18 May resume sexual activity in: No Restrictions Call your doctor if you observe: Fever of 101 or Higher, Shortness of breath, Fainting spells, Uncontrolled pain, - - yellow skin or eyes Additional Instructions: The hepatitis panel is still pending. It is not unusual to have more than 1 type of viral hepatitis in people using IV drugs. The HIV is negative. Dr. Sloan is willing to see you in the future and treat you for hepatitis C but you MUST be clean for at least 6 months before he will even consider you for treatment. You will need to follow up with Dr. Perdomo to do random drug checks to make sure that you are clean and sober over the next 6 months. Hepatitis C causes cirrhosis and liver cancer. NO one will even consider treating you if you are still using. You will also not be a candidate for liver transplant unless you have been clean for at least 1 year. It is very difficult to quit and the best chance with the most success is in-patient drug rehab. IV drug use also is associated with infections on the heart valves and this will kill you also. Do your best to get clean and stay clean. Allergies/Adverse Reactions: Allergies erythromycin base [Erythromycin Base] Allergy (Verified 07/26/18 22:56) Hives Penicillins Allergy (Verified 07/26/18 22:56) Hives Medications to take at Discharge Naproxen [Naprosyn] 500 mg PO BID PRN #20 tablet 05/05/18 Prednisone 10 mg PO UD #30 tab 07/28/18 The following prescriptions were given: Prednisone 10 mg PO UD #30 tab Primary Care Physician: Fortunato Perdomo MD [Primary Care Provider] - Please follow up with your Primary Care Physician in: 5-7 days Test Results: Test results from this visit will be discussed in further detail at your follow-up appointment, if applicable. Please Follow Up With: Paco Sloan MD When: when you have been free of drugs for at least 6 months Proposed Discharge Date: 07/28/18
--- NOTE | 2018-07-28 18:07 | DCINST_ITS ---
- Discharge Diagnoses Current Active Problems: Current Active and Chronic Problems Transaminitis (Acute) IVDU (intravenous drug user) (Acute) You will use the following diet at home:: No restrictions Your food should be the consistency of: Regular Your liquids should be the consistency of: Regular/Thin Discharge Activity: Return to Normal Activity, - - May not drive while under the influence of intravenous amphetamine or heroin Return to work on:: 07/31/18 May resume sexual activity in: No Restrictions Call your doctor if you observe: Fever of 101 or Higher, Shortness of breath, Fainting spells, Uncontrolled pain, - - yellow skin or eyes Additional Instructions: The hepatitis panel is still pending. It is not unusual to have more than 1 type of viral hepatitis in people using IV drugs. The HIV is negative. Dr. Sloan is willing to see you in the future and treat you for hepatitis C but you MUST be clean for at least 6 months before he will even consider you for treatment. You will need to follow up with Dr. Perdomo to do random drug checks to make sure that you are clean and sober over the next 6 months. Hepatitis C causes cirrhosis and liver cancer. NO one will even consider treating you if you are still using. You will also not be a candidate for liver transplant unless you have been clean for at least 1 year. It is very difficult to quit and the best chance with the most success is in- patient drug rehab. IV drug use also is associated with infections on the heart valves and this will kill you also. Do your best to get clean and stay clean. Allergies/Adverse Reactions: Allergies erythromycin base [Erythromycin Base] Allergy (Verified 07/26/18 22:56) Hives Penicillins Allergy (Verified 07/26/18 22:56) Hives Medications to take at Discharge Naproxen [Naprosyn] 500 mg PO BID PRN #20 tablet 05/05/18 Prednisone 10 mg PO UD #30 tab 07/28/18 The following prescriptions were given: Prednisone 10 mg PO UD #30 tab Primary Care Physician: Fortunato Perdomo MD [Primary Care Provider] - Please follow up with your Primary Care Physician in: 5-7 days Test Results: Test results from this visit will be discussed in further detail at your follow- up appointment, if applicable. Please Follow Up With: Paco Sloan MD When: when you have been free of drugs for at least 6 months Proposed Discharge Date: 07/28/18
[2018-07-28 18:14] LABS: Amphetamine Urine VISTA POSITIVE (<1000 ng/mL); Barbiturate Urine VISTA NEGATIVE (< 200 ng/mL); Benzodiazepine Urine VISTA NEGATIVE (< 200 ng/mL); Cocaine Urine VISTA NEGATIVE (< 300 ng/mL); Ecstacy Urine VISTA NEGATIVE (< 500 ng/mL); Methadone Urine VISTA NEGATIVE (< 300 ng/mL); PCP Urine VISTA NEGATIVE (< 25 ng/mL); THC Urine VISTA POSITIVE (< 50 ng/mL); Vista UDS pH Range 5
--- NOTE | 2018-07-28 18:21 | DS.PCM_ITS ---
Discharge Date and Diagnosis Date of Admission: 07/27/18 Date of Discharge: 07/28/18 - Primary Discharge Diagnosis Active and Suspected Problems Decreased level of consciousness (Acute) secondary to admitted use of narcotics on the night of admission.....likely carfentanil since the opiate screen was negative. Abnormal LFT's in pt with untreated Hep C - Secondary Discharge Diagnosis Chronic Problems Back pain with left-sided radiculopathy (Chronic) Tobacco dependence (Chronic) Abnormal LFTs (Chronic) IVDU (intravenous drug user) (Chronic) opiates and amphetamine History of hepatitis C (Chronic) - untreated Hospital Course and Treatment Imaging Results: Clinical Impression(s) from Imaging Studies Abdomen/Pelvis CT 07/27/18 00:22 IMPRESSION: No acute abnormality of the abdomen and pelvis. Electronically Signed: Medardo Beth MD at 1:49 EST Tel , Service support , Laboratory Results - last 24 hr 07/28/18 07/28/18 07/28/18 06:35 06:35 06:35 WBC 11.3 H RBC 3.90 L Hgb 11.9 L Hct 35.8 L MCV 91.8 MCH 30.5 MCHC 33.2 RDW 14.9 H RDW Differential 49.1 H Plt Count 244 MPV 10.1 Immature Gran % (Auto) 0.200 Neut % (Auto) 69.2 Lymph % (Auto) 18.4 L [place] % (Auto) 11.3 H Eos % (Auto) 0.6 Baso % (Auto) 0.3 Absolute Neuts (auto) 7.8 H Absolute Lymphs (auto) 2.07 Total Counted Not Reportable Sodium 140 Potassium 3.7 Chloride 109 H Carbon Dioxide 27.0 Anion Gap 4 L BUN 14 Creatinine 1.00 Estim Creat Clear Calc 105.65 Est GFR (MDRD) Af Amer 106 Est GFR (MDRD) Non-Af 88 BUN/Creatinine Ratio 14.1 Glucose 138 H Hemoglobin A1c 5.3 Calcium 8.0 L Total Bilirubin 2.90 H AST 481 H ALT 1283 H Alkaline Phosphatase 246 H Total Protein 6.2 L Albumin 2.9 L Globulin 3.3 Albumin/Globulin Ratio 0.9 Urine Opiates Screen Urine Methadone Screen Ur Barbiturates Screen Ur Phencyclidine Scrn Ur Amphetamines Screen U Methamphetamin-MDMA U Benzodiazepines Scrn Urine Cocaine Screen U Cannabinoids Screen Ur Drug Screen Comment 07/28/18 16:15 WBC RBC Hgb Hct MCV MCH MCHC RDW RDW Differential Plt Count MPV Immature Gran % (Auto) Neut % (Auto) Lymph % (Auto) [place] % (Auto) Eos % (Auto) Baso % (Auto) Absolute Neuts (auto) Absolute Lymphs (auto) Total Counted Sodium Potassium Chloride Carbon Dioxide Anion Gap BUN Creatinine Estim Creat Clear Calc Est GFR (MDRD) Af Amer Est GFR (MDRD) Non-Af BUN/Creatinine Ratio Glucose Hemoglobin A1c Calcium Total Bilirubin AST ALT Alkaline Phosphatase Total Protein Albumin Globulin Albumin/Globulin Ratio Urine Opiates Screen NEGATIVE Urine Methadone Screen NEGATIVE Ur Barbiturates Screen NEGATIVE Ur Phencyclidine Scrn NEGATIVE Ur Amphetamines Screen POSITIVE H U Methamphetamin-MDMA NEGATIVE U Benzodiazepines Scrn NEGATIVE Urine Cocaine Screen NEGATIVE U Cannabinoids Screen POSITIVE H Ur Drug Screen Comment Dr. 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 He was found by his girlfriend with decreased responsiveness EMS was called. The patient denied any recent intravenous drug abuse. Vital signs in the ER were temp 97.9, heart rate 69, blood pressure 93/52, respiratory rate 18 and pulse ox was 99% on room air. CBC was unremarkable. Total bilirubin was 3.4, AST and ALT were 1045 and 1979 respectively, alkaline phosphatase was 345 and the ammonia level was 42. Lipase was 224. PT was within normal limits. Urine drug screen was positive for amphetamine and cannabinoids. CT scan of the abdomen and pelvis showed a few hypoattenuated lesions in the liver with the largest measuring 5 mm. Gallbladder was normal and so was the extrahepatic biliary system. He was admitted to the hospital with a diagnosis of acute on chronic back pain. He was started on a Toradol regimen for pain relief and Flexeril was ordered as needed. PT and OT were consulted. Dr. Sloan was consulted regarding hepatitis C. He later admitted to using IV opiates on the night he was brought into the hospital and since the opiate screen was negative it was likely carfentanil....he admitted to using drugs with a woman he knows in [place]. He told me that amphetamines are his DOC but, he uses heroin every few weeks. He is currently on parole and is getting counselling at [facility]. He is worried that his PO will find out he is using and send him back to halfway. [facility] and he is not interested in drug rehab. He was seen in consultation by Dr. Sloan who is willing to treat him for hepatitis C if he can demonstrate that he has been clean and sober for at least 6 months to 1 year. LFTs were repeated on 07/28/2018 and had improved. Total bilirubin was down to 2.9 with an AST of 41, ALT of 1283 and an alkaline phosphatase of 246. PT was within normal limits. The hepatitis panel was returned following the patient's discharge and in addition to being positive for hepatitis C he is now positive for hepatitis B surface antigen and hepatitis B core antibody. The hepatitis A IgM was negative.HIV was negative. Pt was discharged home on 07/29. GENERAL: very drowsy today and difficult to arouse ORAL: moist mucosa, no mucosal lesions NECK: No JVD, supple, trachea midline, no carotid bruits LUNGS: CTA, symmetric chest expansion HEART: RRR, Normal S1 and S2, no rub, no gallop, no murmur ABDOMEN: soft, NT, ND, BS present, no guarding with palpation EXTREMITIES: no edema, no cyanosis, no calf tenderness, full range of motion on both lower extremities. Positive straight leg raising at approximately 60 degrees on the left and also positive Surinder's on the left. 5/5 strength in both lower extremities SKIN: No rashes, no breakdown, multiple tattoos NEUROLOGIC: no focal neurologic deficits PSYCH: appropriate, flat A call was placed to the cell phone the pt had listed as his contact (possible his significant other) and there was a message from a person Named Nicci. A message was left on the voicemail with no name of the pt but, she was instructed if she knew someone who may have given her cell phone number out and who was recently a pt in the hospital to have him call Dr. Perdomo's office Tuesday to discuss the results of some of the testing he had in the hospital. This note was generated with [employer] dictation software. It may contain incorrect words, spelling, and punctuation that were not noted in checking the note before signing. - Physical Exam Vital Signs Temp Pulse Resp BP Pulse Ox 98.6 F 88 16 102/63 99 07/28/18 16:07 07/28/18 16:07 07/28/18 16:07 07/28/18 16:07 07/28/18 16:07 Oxygen Delivery Method Room Air Weight: 169 lb 6.416 oz Body Mass Index (BMI) 20.6 Intake and Output for Last 24 Hours 07/26/18 07/27/18 07/28/18 23:59 23:59 23:59 Intake Total 2322 / 2322 1156 / 1156 Output Total 75 / 75 Balance 2322 / 2322 1081 / 1081 Laboratory Tests Past 24 Hrs 07/28/18 07/28/18 07/28/18 06:35 06:35 06:35 WBC 11.3 H RBC 3.90 L Hgb 11.9 L Hct 35.8 L MCV 91.8 MCH 30.5 MCHC 33.2 RDW 14.9 H RDW Differential 49.1 H Plt Count 244 MPV 10.1 Immature Gran % (Auto) 0.200 Neut % (Auto) 69.2 Lymph % (Auto) 18.4 L [place] % (Auto) 11.3 H Eos % (Auto) 0.6 Baso % (Auto) 0.3 Absolute Neuts (auto) 7.8 H Absolute Lymphs (auto) 2.07 Total Counted Not Reportable Sodium 140 Potassium 3.7 Chloride 109 H Carbon Dioxide 27.0 Anion Gap 4 L BUN 14 Creatinine 1.00 Estim Creat Clear Calc 105.65 Est GFR (MDRD) Af Amer 106 Est GFR (MDRD) Non-Af 88 BUN/Creatinine Ratio 14.1 Glucose 138 H Hemoglobin A1c 5.3 Calcium 8.0 L Total Bilirubin 2.90 H AST 481 H ALT 1283 H Alkaline Phosphatase 246 H Total Protein 6.2 L Albumin 2.9 L Globulin 3.3 Albumin/Globulin Ratio 0.9 Urine Opiates Screen Urine Methadone Screen Ur Barbiturates Screen Ur Phencyclidine Scrn Ur Amphetamines Screen U Methamphetamin-MDMA U Benzodiazepines Scrn Urine Cocaine Screen U Cannabinoids Screen Ur Drug Screen Comment 07/28/18 16:15 WBC RBC Hgb Hct MCV MCH MCHC RDW RDW Differential Plt Count MPV Immature Gran % (Auto) Neut % (Auto) Lymph % (Auto) [place] % (Auto) Eos % (Auto) Baso % (Auto) Absolute Neuts (auto) Absolute Lymphs (auto) Total Counted Sodium Potassium Chloride Carbon Dioxide Anion Gap BUN Creatinine Estim Creat Clear Calc Est GFR (MDRD) Af Amer Est GFR (MDRD) Non-Af BUN/Creatinine Ratio Glucose Hemoglobin A1c Calcium Total Bilirubin AST ALT Alkaline Phosphatase Total Protein Albumin Globulin Albumin/Globulin Ratio Urine Opiates Screen NEGATIVE Urine Methadone Screen NEGATIVE Ur Barbiturates Screen NEGATIVE Ur Phencyclidine Scrn NEGATIVE Ur Amphetamines Screen POSITIVE H U Methamphetamin-MDMA NEGATIVE U Benzodiazepines Scrn NEGATIVE Urine Cocaine Screen NEGATIVE U Cannabinoids Screen POSITIVE H Ur Drug Screen Comment Discharge Activity: Return to Normal Activity, - - May not drive while under the influence of intravenous amphetamine or heroin Return to work on:: 07/31/18 May resume sexual activity in: No Restrictions Call your doctor if you observe: Fever of 101 or Higher, Shortness of breath, Fainting spells, Uncontrolled pain, - - yellow skin or eyes Home Medications: Medications to take at Discharge Naproxen [Naprosyn] 500 mg PO BID PRN #20 tablet 05/05/18 Prednisone 10 mg PO UD #30 tab 07/28/18 Following Prescrptions Were Given to Patient: Prednisone 10 mg PO UD #30 tab Primary Care Physician: Fortunato Perdomo MD [Primary Care Provider] - Please follow up with your Primary Care Physician in: 5-7 days Please Follow Up With: Paco Sloan MD When: when you have been free of drugs for at least 6 months Disposition: Home Minutes spent on discharge:: 40 Patient Condition:: Fair Medical Necessity - Tobacco Use Smoking Status: Current every day smoker Tobacco Use: Cigarettes Meaningful Use Info Meaningful Use Diagnoses (Choose all that apply): None applicable Code Visit Inpatient E&M: 84270 Disch Hosp
[2018-07-28 18:45] LABS: Hep C Antibodies >11.0 s/co ratio (0.0-0.9)
[2018-07-28 19:37] LABS: HEPATITIS B SURFACE AG Positive (Negative)
[2018-07-29 12:07] LABS: HCV Quant. RNA PCR 1060 IU/mL (.)
[2018-07-31 11:15] LABS: HCV log 10 3.025 (.)
== END 2018-07-28 18:56 | disposition home or self-care (01) ==
LOC: ED 07-27 03:42 → MS3 07-27 04:34
PROVIDERS: Internal Medicine Infectious Disease; Admitting Provider Family Medicine; Emergency Provider Emergency Medicine; Family Provider Family Medicine; PCP Family Medicine; Visit Provider Internal Medicine
DX: R41.82 Altered mental status, unspecified (principal); Z86.711 Personal history of pulmonary embolism; Z86.718 Personal history of other venous thrombosis and embolism; Z86.19 Personal history of other infectious and parasitic diseases; M54.5 Low back pain; F17.210 Nicotine dependence, cigarettes, uncomplicated; F19.10 Other psychoactive substance abuse, uncomplicated; K21.9 Gastro-esophageal reflux disease without esophagitis; R74.0 Nonspecific elevation of levels of transaminase and lactic acid dehydrogenase [LDH]; E72.20 Disorder of urea cycle metabolism, unspecified; G89.29 Other chronic pain
CPT/HCPCS: 36415; 74177; 80048; 80053; 80074; 80076; 80307; 80320; 80329; 82140; 83036; 83690; 83735; 84484; 85025; 85610; 85730; 86703; 87522; 93005; 96361; 96374; 96375; 96376; 97802; 99218; 99282; 99406; J7030; Q9967; A4216; G0378; G0480; J2405

== ENCOUNTER → 2018-08-02 10:12 | Outpatient (CLI) | payer MEDICAID, SELFPAY ==
[2018-07-27 04:51] VITALS: BMI 20.6
[2018-08-02 11:54] LABS: Absolute Lymphocyte Count 1.95 X10^3/ul (0.83-4.51); Absolute Neutrophil Count 4.6 X10^3/uL (2.0-7.7); Basophil# 0.04 X10^3/uL; Basophil% 0.5 % (0-1); Eosinophil# 0.23 X10^3/uL; Eosinophils% 2.9 % (0-5); Lymphocyte # 1.95 X10^3/ul (4.0); Lymphocyte % 24.4 % (19-41); Mean Corp Hgb Conc 32.6 g/gl (32-36); Mean Corpuscular Volume 92.1 fL (80-94); Mean Platelet Vol. 10.3 fl (6.2-12.0); Monocyte# 1.11 X10^3/uL; Monocyte% 13.9 % (0-10); Neutrophil # 4.58 X10^3/uL (2.7-7.7); Neutrophil % 57.4 % (47-70); Platelet Count 358 K/mm3 (150-450); RBC Distribution Width CV 15.6 % (11.6-14.6); RBC Distribution Width SD 52.1 fl (35.1-43.9); Red Blood Count 4.67 M/mm3 (4.6-6.2)
[2018-08-02 11:55] LABS: POSITIVE COUNT NO; POSITIVE DIFFERENTIAL NO; POSITIVE MORPHOLOGY NO
[2018-08-02 12:08] LABS: Amphetamine Urine VISTA POSITIVE (<1000 ng/mL); Barbiturate Urine VISTA NEGATIVE (< 200 ng/mL); Benzodiazepine Urine VISTA NEGATIVE (< 200 ng/mL); Cocaine Urine VISTA NEGATIVE (< 300 ng/mL); Ecstacy Urine VISTA NEGATIVE (< 500 ng/mL); Methadone Urine VISTA NEGATIVE (< 300 ng/mL); PCP Urine VISTA NEGATIVE (< 25 ng/mL); THC Urine VISTA POSITIVE (< 50 ng/mL); Vista UDS pH Range 6
[2018-08-02 12:19] LABS: AST(SGOT) 1077 U/L (15-37); Alanine Aminotransfer ALT/SGPT 1773 U/L (16-61); Albumin, Serum 3.6 g/dL (3.2-5.0); Alkaline Phosphatase 290 U/L (45-117); Anion Gap 8 (5-15); BUN 15 mg/dL (7-18); BUN/Creat Ratio 16.2 RATIO (10-20); Calcium,Total 8.8 mg/dL (8.5-10.1); Chloride 105 mmol/L (98-107); Creatinine, Serum 0.93 mg/dL (0.70-1.30); EST Glomerular Filtration Rate 95 mL/min (>60); Est Glom Filt Rate - Afr Amer 115 mL/min (>60); Globulin 3.7 g/dL (2.2-4.2); Glucose 135 mg/dL (74-106); Potassium 4.2 mmol/L (3.5-5.1); Protein, Total 7.3 g/dL (6.4-8.2); Sodium Level 138 mmol/L (136-145)
[2018-08-04 03:06] LABS: HCV Quant. RNA PCR 130 IU/mL (.)
[2018-08-04 11:31] LABS: HCV log 10 2.114 (.)
== END ==
PROVIDERS: Family Provider Family Medicine; PCP Family Medicine; Visit Provider Family Medicine
DX: B19.20 Unspecified viral hepatitis C without hepatic coma (principal)
CPT/HCPCS: 36415; 80053; 80307; 85025; 87522

== ENCOUNTER 2018-08-04 22:55 | Emergency (ER) | payer MEDICAID, SELFPAY ==
[2018-07-27 04:51] VITALS: BMI 20.6
[2018-08-04 22:56] VITALS: BP 116/84; PULSE 110; RESP 16; TEMP 36.6; O2SAT 99; BMI 20.9
--- NOTE | 2018-08-04 23:13 | EKG12_ITS ---
Test Reason : GEN ILL Blood Pressure : / mmHG Vent. Rate : 075 BPM Atrial Rate : 075 BPM P-R Int : 124 ms QRS Dur : 090 ms QT Int : 336 ms P-R-T Axes : 074 090 065 degrees QTc Int : 375 ms Normal sinus rhythm Rightward axis Borderline ECG Confirmed by RUTH ANN VENEGAS, PADMA ([id number]), deputy editor in chief OZIEL HUMPHREYS ([id number]) on 08/08/2018 4:46:37 PM Referred By: DC Confirmed By:PADMA VALLECILLO MD
--- NOTE | 2018-08-04 23:15 | CT_ITS ---
HISTORY: LOC,FOUND UNRESPONSIVE AT 10PM,PT WAS DROOLING AND SNORING HX:HEP B,HEP C,POLY SUBSTANCE ABUSE TECHNIQUE: Multiple axial images were obtained of the brain without intravenous contrast. A radiation dose optimization technique was used for this scan. IV Contrast dosage and agent: None. COMPARISON: 06/01/2017 FINDINGS: Normal ventricles and normal stephens-white matter differentiation. No intracranial mass, hemorrhage, or acute parenchymal abnormality. Posterior fossa structures are unremarkable. No suspicious extra-axial fluid collection. The mastoids appear clear. Mild mucosal thickening of the posterior lateral wall of the right maxillary sinus. CT/Brain/Head without Contrast IMPRESSION: 1. Normal CT brain without contrast. 2. Right maxillary mild sinusitis. Individualized dose optimization techniques were used for this CT. at 0033 Reported and signed by: Gerber Cook MD Electronically Signed: Gerber Cook, at 0:32 EST Tel , Service support ,
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
[2018-08-05 00:11] LABS: Absolute Lymphocyte Count 2.25 X10^3/ul (0.83-4.51); Absolute Neutrophil Count 6.3 X10^3/uL (2.0-7.7); Basophil# 0.04 X10^3/uL; Basophil% 0.4 % (0-1); Differential Indicated SCAN CRITERIA MET; Eosinophil# 0.13 X10^3/uL; Eosinophils% 1.2 % (0-5); Hematocrit 43.2 % (40-54); Hemoglobin 13.8 g/dl (13.0-16.5); Lymphocyte # 2.25 X10^3/ul (4.0); Lymphocyte % 21.3 % (19-41); Mean Corp Hgb Conc 31.9 g/gl (32-36); Mean Corpuscular Hgb 29.4 pg (27.0-32.0); Mean Corpuscular Volume 92.1 fL (80-94); Monocyte# 1.77 X10^3/uL; Monocyte% 16.8 % (0-10); Neutrophil # 6.27 X10^3/uL (2.7-7.7); Neutrophil % 59.5 % (47-70); POSITIVE COUNT NO; POSITIVE DIFFERENTIAL YES; POSITIVE MORPHOLOGY NO; Platelet Count 363 K/mm3 (150-450); RBC Distribution Width CV 15.5 % (11.6-14.6); Red Blood Count 4.69 M/mm3 (4.6-6.2); White Blood Count 10.5 K/mm3 (4.4-11.0)
[2018-08-05 00:12] VITALS: BP 130/73; PULSE 95; RESP 16; O2SAT 95
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
--- NOTE | 2018-08-05 00:20 | ED.DEP ---
ED Disposition - Plan for ED Patient: Instructions: ED Altered Loc Referrals: Fortunato Perdomo MD [Primary Care Provider] -
[2018-08-05 00:22] LABS: Differential Comment SCANNED
[2018-08-05 00:52] LABS: ALB/GLOB Ratio 0.9 RATIO (0.9-2.4); AST(SGOT) 994 U/L (15-37); Alanine Aminotransfer ALT/SGPT 1979 U/L (16-61); Albumin, Serum 3.9 g/dL (3.2-5.0); Alkaline Phosphatase 299 U/L (45-117); Anion Gap 8 (5-15); BUN 17 mg/dL (7-18); BUN/Creat Ratio 15.6 RATIO (10-20); Calcium,Total 8.5 mg/dL (8.5-10.1); Chloride 106 mmol/L (98-107); Creatinine, Serum 1.09 mg/dL (0.70-1.30); EST Glomerular Filtration Rate 79 mL/min (>60); Est Glom Filt Rate - Afr Amer 96 mL/min (>60); Estimated Creatinine Clearance 98.52 ml/min; Globulin 4.3 g/dL (2.2-4.2); Glucose 120 mg/dL (74-106); Potassium 4.4 mmol/L (3.5-5.1); Protein, Total 8.2 g/dL (6.4-8.2); Sodium Level 136 mmol/L (136-145)
== END 2018-08-05 00:18 | disposition home or self-care (01) ==
PROVIDERS: Emergency Provider Emergency Medicine; Family Provider Family Medicine; PCP Family Medicine
DX: R55 Syncope and collapse (principal)
CPT/HCPCS: 70450; 71045; 80053; 80320; 82140; 84484; 85025; 93005; 99285; A4216; G0480

== ENCOUNTER 2018-09-07 21:30 | Emergency (ER) | payer MEDICAID, SELFPAY ==
[2018-09-07 21:32] VITALS: BP 107/62; PULSE 157; RESP 14; TEMP 39.4; O2SAT 98; BMI 23.7
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
[2018-09-07] MEDS: Acetaminophen 500 MG Tablet 1000 MG PO (22:15)
[2018-09-07] MEDS: 0.9% Normal Saline 1,000 ML 1000 ML IV (22:15)
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
[2018-09-07 23:44] VITALS: TEMP 37.7
[2018-09-07] MEDS: 0.9% Normal Saline 1,000 ML 999 ML IV (23:44)
[2018-09-08 00:02] VITALS: BP 116/77; PULSE 115; RESP 27
[2018-09-08 01:16] VITALS: BP 129/89; PULSE 108; RESP 16; O2SAT 96
[2018-09-08 01:22] VITALS: PULSE 101
== END 2018-09-08 01:25 | disposition home or self-care (01) ==
PROVIDERS: Emergency Provider Emergency Medicine; Family Provider Family Medicine; PCP Family Medicine
DX: B34.9 Viral infection, unspecified (principal); Z04.1 Encounter for examination and observation following transport accident; B19.10 Unspecified viral hepatitis B without hepatic coma; B19.20 Unspecified viral hepatitis C without hepatic coma; F19.10 Other psychoactive substance abuse, uncomplicated; Z72.0 Tobacco use
CPT/HCPCS: 71046; 87804; 96360; 96361; 99285; J7030

== ENCOUNTER 2019-09-05 15:53 | Emergency (ER) | payer SELFPAY ==
[2019-09-05 15:54] VITALS: BP 116/74; PULSE 120; RESP 17; TEMP 36.7; O2SAT 96; BMI 21.4
--- NOTE | 2019-09-05 16:46 | ED.DCSUM_ITS ---
- ER Visit Summary Date of Service: 09/05/19 Chief Complaint: Eye swelling History of Present Illness: The patient is a 43 M with left eye swelling for the past 6 days. Patient has tried [id number] remedies, but they are not helping. He reports drainage and swelling. Denies fever or systemic symptoms. Denies respiratory symptoms. Denies any history of this in the past. He used to use contact lenses, but has not for months. Denies trauma or foreign body, but does have a foreign body sensation at the top of his eye. Physical Examination: Afebrile and vital signs unremarkable. External skin is unremarkable except for upper and lower left eyelid edema. Conjunctive a is erythematous and there is chemosis. Iris and pupil unremarkable. There is a linear abrasion at 12:00 but I do not appreciate any dendrites. Otherwise his exam is unremarkable. Test Results: None performed Emergency Department Course and Treatment: Fluorescein and tetracaine applied by me. Exam as above. Patient was treated with Rocephin and azithromycin. I spoke with Dr. Buckner for follow-up. Patient has an allergy to erythromycin so was started on Ciloxan every 2 hours while awake. He will follow-up tomorrow at the [place] office [phone]. Technically the office will be locked and closed, but he can call when he arrives and they would let him in after screening. Treatment Plan: As above Disposition: Discharge Impression: Left eye conjunctivitis This note was generated with [employer] dictation software. It may contain incorrect words, spelling, and punctuation that were not noted in review of the chart prior to signing ED Disposition - Plan for ED Patient: Referrals: Fortunato Perdomo MD [Primary Care Provider] -
--- NOTE | 2019-09-05 16:49 | ED.DEP ---
ED Disposition - Plan for ED Patient: Instructions: ED Conjunctivitis Bacterial Prescriptions: Ciprofloxacin 0.3% [Ciloxan] 2 drp LEFT EYE Q2H #1 bottle Prescription Printed Referrals: Shayla Buckner MD [STAFF PHYSICIAN] - Additional Instructions: Follow-up with [facility]. [phone]. Arrive at 1 PM. The doors will be locked and you will be screened prior to entry. Call when you arrive.
[2019-09-05] MEDS: Azithromycin 250 MG Tablet 1000 MG PO (16:59)
[2019-09-05] MEDS: Ceftriaxone 1 GM Vial IM (17:06)
== END 2019-09-05 17:44 | disposition home or self-care (01) ==
LOC: ED 16:29
PROVIDERS: Emergency Provider Emergency Medicine; PCP Family Medicine
DX: H10.9 Unspecified conjunctivitis (principal); F17.200 Nicotine dependence, unspecified, uncomplicated
CPT/HCPCS: 96372; 99282